=== PATIENT | male | born 1965 | race Caucasian/White ===

== ENCOUNTER 2022-02-07 08:07 | Emergency (ER) | payer OTHER ==
[~2022-02-07] VITALS: Ht 182.8 cm; Wt 95.3 kg
[2022-02-07 08:41] LABS: MEAN CORPUSCULAR HGB 25.5 pg (27.0-31.0); MEAN CORPUSCULAR HGB CONC 31.5 g/dl (33.0-37.0); MEAN PLATELET VOLUME 9.6 fl (9.6-12.3); PLATELET COUNT AUTOMATED 399 10*3/uL (130-400); RED CELL DISTRI WIDTH 15.3 % (0-14.5); WHITE BLOOD COUNT 17.5 10*3/uL (4.8-10.8)
[2022-02-07 08:44] LABS: MANUAL DIFF REFLEX YES
[2022-02-07 08:54] LABS: ACT PARTIAL THROMBO TIME 28.2 SECONDS (20.0-32.1)
[2022-02-07 08:57] LABS: ALKALINE PHOSPHATASE 134 U/L (45-117); BUN 26 mg/dl (7-24); CHLORIDE 109 mmol/L (98-107); CREATININE 1.26 mg/dL (0.70-1.30); POTASSIUM 4.3 mmol/L (3.5-5.1); SGOT/AST 16 IU/L (3-35); SGPT/ALT 22 U/L (12-78); SODIUM 139 mmol/L (136-145); TOTAL PROTEIN 6.1 gm/dL (6.4-8.2)
[2022-02-07 09:01] LABS: BILIRUBIN 1+ (Negative); BLOOD 3+ (Negative); CLARITY Turbid (Clear); COLOR Red (Yellow); GLUCOSE Negative (Negative); KETONE Negative (Negative); NITRITE Positive (Negative); PH 5.5 (4.5-8.0); UROBILINOGEN 0.2 E.U./dl (0.0-1.0)
[2022-02-07 09:03] LABS: LEUKO ESTERASE 2+ (Negative)
[2022-02-07 09:06] LABS: RBC TNTC rbc/hpf (0-2); WBC TNTC wbc/hpf (0-5)
[2022-02-07 09:09] LABS: TOTAL CELLS COUNTED 100 #CELLS
[2022-02-07 09:10] LABS: PLATELET SUFFICIENCY NORMAL (NORMAL)
== END 2022-02-07 09:10 | disposition left against medical advice (07) ==
LOC: ED 08:07
PROVIDERS: Emergency Medicine
DX: R31.9 Hematuria, unspecified (principal)